=== PATIENT | female | born 1945 | race Caucasian/White ===

== ENCOUNTER 2023-07-17 15:16 | Observation (INO) | payer OTHER, SELFPAY ==
[2023-07-17 15:18] VITALS: BP 110/68; PULSE 81; RESP 16; TEMP 36.8; O2SAT 95; BMI 27.5
[2023-07-17 16:30] LABS: PCR FLU A Negative PCR FLU A (Negative); PCR FLU B Negative PCR FLU B (Negative); PCR RSV Negative PCR RSV (Negative); SARS PCR* POSITIVE SARS-CoV-2 (Negative)
--- NOTE | 2023-07-17 16:42 | PC.SOCIAL ---
Discharge planning: Spoke with family friend Afshan Grant, , who requested to speak with group social worker. Afshan states she is hoping pt is admitted to the hospital and that the hospital can place her in a facility due to her dementia. Afshan states she has been helping the try to work with the [facility] [employer] social studies tutor to find a place fro her to go but the [facility] has not been helpful. Informed friend that social work will be involved with discharge planning if pt is in need of this at discharge. At this time, pt has been triaged and is waiting in the waiting room. Afshan is not currently listed as a account contact associate for pt and suggested that pt can ad her if she wants Afshan to be involved in discharge planning.second time worker to follow up tomorrow as needed.
--- NOTE | 2023-07-17 17:00 | ED.WEAKNESS ---
HPI - Weakness General Time Seen by Provider: 17:00 Date Seen: 07/17/23 Chief complaint: Weakness Stated complaint: increased weakness Time Seen by Provider: 07/17/23 16:58 Source: patient, EMS and RN notes reviewed Mode of arrival: EMS Limitations: no limitations History of Present Illness HPI Narrative: This 77-year-old female has underlying dementia and is brought in by EMS from her home where she resides with her whom is her primary picker. He notes that she has been getting weaker, more difficult to care for. She started coughing about 3-4 days ago. She has had reported COVID vaccines. She felt hot last night but he did not check a temperature. She has had diminished oral intake, not eating or drinking while. She has had no vomiting, has not had any evidence of any pain anywhere. She has had diarrhea with the onset of the cough. She did have the triple viral swab on arrival, is COVID positive and I did update them on this. Her notes that she had wished not to be resuscitated, she is DNR DNI. He denies any chronic underlying heart or lung issues with her. They reportedly had stopped patient's donepezil last week. EMS reported to nursing staff that she had rales throughout her lungs. EMS did get a glucose of 160, placed an 18 gauge in her left forearm, did not give her any medicines. She reportedly is usually nonverbal beyond yes or no. She does talk to me, she tells me she loves me, is speaking to me in other words in short phrases, is not very verbose but still does have appropriate short communications with me. MD Complaint: generalized weakness Related Data Home Medications Medication Instructions Recorded Confirmed cholecalciferol (vitamin D3) 50 50 mcg PO DAILY 07/17/23 07/17/23 mcg (2,000 unit) capsule citalopram 20 mg tablet 20 mg PO DAILY 07/17/23 07/17/23 gabapentin 300 mg capsule 900 mg PO BID 07/17/23 07/17/23 multivitamin with min tab PO 07/17/23 no.36-iron,carbonyl-FA 16 mg iron-0.38 mg tablet (Geritol Complete) Allergies Allergy/AdvReac Type Severity Reaction Status Date / Time No Known Drug Allergies Allergy Verified 07/17/23 15:24 Review of Systems Status of ROS: Reports: unobtainable due to medical condition PFSH PFSH Medical History (Updated 07/17/23 @ 21:01 by Yaron Peterson MD) Discharge planning issues ?Z02.9 - Encounter for administrative examinations, unspecified (ICD-10) Urinary incontinence ?R32 - Unspecified urinary incontinence (ICD-10) Depression ?F32.A - Depression, unspecified (ICD-10) Peripheral sensory neuropathy ?G60.8 - Other hereditary and idiopathic neuropathies (ICD-10) Parkinsonism ?G20.C - Parkinsonism, unspecified (ICD-10) Dementia ?F03.90 - Unspecified dementia, unspecified severity, without behavioral disturbance, psychotic disturbance, mood disturbance, and anxiety (ICD-10) Surgical History (Updated 07/17/23 @ 20:55 by Yaron Peterson MD) History of tonsillectomy and adenoidectomy ?Z90.89 - Acquired absence of other organs (ICD-10) History of colonoscopy ?Z98.890 - Other specified postprocedural states (ICD-10) History of arthroscopic knee surgery ?Z98.890 - Other specified postprocedural states (ICD-10) Family History (Updated 07/17/23 @ 20:55 by Yaron Peterson MD) Other Breast cancer Cardiovascular disease High blood pressure Prostate cancer Social History (Updated 07/17/23 @ 20:57 by Yaron Peterson MD) Narrative: Patient lives with her to his primary caregiver. and family are concerned about the burden of caring for her in the home. Code status is DNR. She quit smoking in 1989. She does not drink alcohol What is your current living situation?: unable to answer Problems where you live: unable to answer Problems where you live details: NA In the past 12 months, utilities in danger of being shut off: unable to answer In past 12 months, lack of transportation kept you from medical appts, meetings, work, or getting things needed for daily living: unable to answer In the past 12 mos, have been you worried that your food would run out before you had money to buy more?: unable to answer In the past 12 mos, the food you bought just didn't last and you didn't have money to buy more?: unable to answer Highest level of school completed/degree received: don't know Smoking Status: Unknown if ever smoked Non-prescribed substance use: other Non-prescribed substance use details: unable to answer Caffeine: No How often does anyone, including family, friends and others, physically hurt you: unable to answer How often does anyone, including family, friends and others, insult or talk down to you: unable to answer How often does anyone, including family, friends and others, threaten you with harm: unable to answer How often does anyone, including family, friends and others, scream or curse at you: unable to answer service: No Exam Const: Vital Signs, click to edit/add: Vital Signs - 24 hr 07/17/23 15:18 07/17/23 17:14 Temperature 98.3 F Pulse Rate [Pulse Oximeter] 81 Respiratory Rate 16 Blood Pressure [Ri ght Upper Arm] 110/68 Pulse Oximetry 95 95 Oxygen Delivery Me thod Room Air Patient is alert, interactive, has intermittent cough that does not sound severe during the interaction. Her speech is normal when she does talk. Pupils are equal round, conjugate gaze, sclera clear. Lips are normal but oropharynx looks like mucosa is mildly dry. Neck supple, no masses. CV regular rate and rhythm, no murmur, normal S1-S2, no S3-S4. I am able to listen to her lungs, get patient to roll to her sides, there is some fine crackles at bases, otherwise no wheezing, no tachypnea noted. Abdomen is soft, nondistended, does not seem to have any tenderness, do not feel any masses. No significant lower extremity edema. Is moving arms and legs while I watch her. She does pick at the bandaging over her right forearm in an attempt to remove it frequently. Despite redirection from the family and myself, she continues to try to pick at it. Will likely need to place a glove on the right hand to stop her from removing her bandaging and IV in the left forearm. Documenting provider has reviewed patient's vital signs: yes Course Course ED Course: They are stating that they cannot take her home, that her condition is progressed even before the onset of COVID that she needs placement. I believe protective services social worker has already reviewed this with her. I will talk to the hospitalist. We will proceed with portable chest x-ray, obtain labs , monitor on oximetry to ensure no hypoxia. We do not have remdesivir, this is been reviewed with them. If her kidney function allow does and she has no other contraindications, can see if Paxlovid will be covered for her. Did recommend that we attempt to send this to a [facility] if this is the case. Consultations Consultation #1: Have reviewed with the hospitalist Dr. Peterson. We did discuss workup, he would prefer if hospitalizing that we do thorough workup. Thus, did add in troponin, EKG to other tests already ordered. She is reportedly DNR DNI per my conversation with the family. We did discuss Paxlovid and he would encourage use if she is able, need to wait on her kidney function. We have discussed the problems with her not being able to return to home baseline due to her underlying weakness in dementia that was progressive even before the COVID, can no longer care for her reportedly. Automobile Seat Cover Installer has already been down and talk to the family. Dr. Peterson does accept care, I will continue on her workup here in update him on anything he may need to know. Time: 17:15 Vital Signs Vital signs: Initial Vital Signs Temperature 98.3 F 07/17/23 15:18 Temperature Source Temporal Artery Scan 07/17/23 15:18 Pulse Rate 81 07/17/23 15:18 Respiratory Rate 16 07/17/23 15:18 Blood Pressure 110/68 07/17/23 15:18 Blood Pressure Mean 82 07/17/23 15:18 Blood Pressure Position Sitting 07/17/23 15:18 Pulse Oximetry 95 07/17/23 15:18 Oxygen Delivery Method Room Air 07/17/23 15:18 Vital Signs Temperature 98.3 F 07/17/23 15:18 Pulse Rate 81 07/17/23 15:18 Respiratory Rate 16 07/17/23 15:18 Blood Pressure 110/68 07/17/23 15:18 Pulse Oximetry 95 07/17/23 15:18 Oxygen Delivery Method Room Air 07/17/23 15:18 Temperature 98.5 F 07/17/23 18:50 Pulse Rate 71 07/17/23 18:50 Respiratory Rate 18 07/17/23 18:50 Blood Pressure 155/76 H 07/17/23 18:50 Pulse Oximetry 94 07/17/23 18:50 Oxygen Delivery Method Room Air 07/17/23 18:50 Medications Administered Medications: Generic Name Dose Route Start Last Admin Trade Name Freq PRN Reason Stop Dose Admin Gabapentin 900 mg 02/05/24 21:00 07/17/23 21:39 Gabapentin 300 Mg Capsule PO 900 mg BID MYRA Administration Sodium Chloride 5 ml 07/17/23 21:00 07/17/23 21:40 Sodium Chloride 0.9 % (Flush) 10 Ml Syringe IVF 5 ml BID MYRA Administration MDM - Weakness Lab Data Attestation: I reviewed the patient's lab results. Labs: Lab Results 07/17/23 07/17/23 07/17/23 Range/Units 15:30 17:19 18:20 WBC 7.69 (4.50-11.00) K/uL RBC 4.65 (4.00-5.20) m/uL Hgb 13.9 (12.0-16.0) gm/dL Hct 43.6 (33.0-51.0) % MCV 94 (80-100) fL MCH 30 (26-34) pg MCHC 32 (32-36) gm/dL RDW Coeff of Vaughn 12.9 (11.5-15.5) % Plt Count 191 (140-440) K/uL Neut % (Auto) 81.8 H (42.0-72.0) % Lymph % (Auto) 9.9 L (20-44) % Carson % (Auto) 7.9 (0.0-11.0) % Eos % (Auto) 0.0 (0.0-7.0) % Baso % (Auto) 0.3 (0.0-3.0) % Neut # (Auto) 6.30 (1.7-7.0) K/uL Lymph # (Auto) 0.80 L (0.90-2.90) K/uL Carson # (Auto) 0.60 (0.00-0.90) K/UL Eos # (Auto) 0.00 (0.00-0.50) K/uL Baso # (Auto) 0.02 (0.00-0.30) K/uL Abs Immat Gran (auto) 0.01 (0.00-0.30) K/uL Imm/Tot Granulo (auto) 0.1 % Sodium 136 (135-149) mmol/L Potassium 3.9 (3.6-5.1) mmol/L Chloride 101 (96-114) mmol/L Carbon Dioxide 26 (20-32) mmol/L Anion Gap 9 (7-15) mEq/L BUN 15 (7-30) mg/dL Creatinine 0.7 (0.5-1.5) mg/dL Estimated Creat Clear 41.33 Estimated GFR 90 ml/min Glucose 114 (60-115) mg/dL Lactate 1.4 (0.5-1.9) mmol/L Calcium 8.1 L (8.4-10.6) mg/dL Total Bilirubin 0.4 (0.1-1.5) mg/dL AST 27 (12-35) U/L ALT 16 (4-35) U/L Alkaline Phosphatase 103 (40-150) U/L Troponin I < 0.01 L (0.01-0.04) ng/mL C-Reactive Protein 4.6 H (0.5-1.0) mg/dL Total Protein 6.7 (6.0-8.3) g/dL Albumin 3.8 (3.3-5.0) g/dL SARS-CoV-2 (PCR) POSITIVE SARS-CoV-2 A (Negative) Influenza Type A (PCR) Negative PCR FLU A (Negative) Influenza Type B (PCR) Negative PCR FLU B (Negative) RSV (PCR) Negative PCR RSV (Negative) Lab Acknowledgement Test Added Imaging Data Chest x-ray: Attestation: I have reviewed the pertinent imaging results. My impression: I do not see any any acute infiltrate on my preliminary review, no covered pattern or CHF either. Radiologist's impression: Patient: DAVID BARILLAS Facility:?[facility] Patient ID:?[id number] Site Patient ID:?[id number]. Site :?[id number] Study:?XRay Chest 1V PORTABLE-07/17/2023 5:58:37 PM Ordering Physician:?Marcelino Green Final Report: INDICATION: COUGH, COVID TECHNIQUE: Chest 1 views. COMPARISON: None. FINDINGS: Cardiovasculature and mediastinum: Heart size and vasculature are within normal limits. Lungs and pleural spaces: No sign of infiltrate or mass. No sign of pleural effusion. No pneumothorax. Bones and soft tissues: No displaced fractures. Degenerative changes of the bilateral shoulders. IMPRESSION: No acute cardiopulmonary process. Dictated by Salas Nieves MD @ 07/17/2023 6:36:59 PM (Electronic Signature) ECG Data Attestation: I personally reviewed and interpreted this ECG as follows: ( Sinus rhythm, 60 beats per minute. No evidence of any ischemia or arrhythmia. QT corrected 442 milliseconds.) ECG interpretation date: 07/17/23 ECG interpretation time: 18:18 Prior ECG tracings: not available for review Discharge Plan Discharge Clinical Impression: COVID-19, Weakness Dementia Qualifiers: Dementia type: unspecified type Patient Disposition: Admitted As Observation
[2023-07-17 17:14] VITALS: O2SAT 95
--- NOTE | 2023-07-17 17:14 | CRLHL7_ITS ---
For Patients: As a result of the Cures Act, medical imaging exams and procedure reports are released immediately into your electronic medical record. You may view this report before your referring provider. If you have questions, please contact your health care provider. INDICATION: COUGH, COVID TECHNIQUE: Chest 1 views. COMPARISON: None. FINDINGS: Cardiovasculature and mediastinum: Heart size and vasculature are within normal limits. Lungs and pleural spaces: No sign of infiltrate or mass. No sign of pleural effusion. No pneumothorax. Bones and soft tissues: No displaced fractures. Degenerative changes of the bilateral shoulders. IMPRESSION: No acute cardiopulmonary process. Dictated by Salas Nieves MD @ 07/17/2023 6:36:59 PM (Electronically Signed)
--- OUTSIDE RECORDS SUMMARY | 2023-07-17 17:30 | XMS_ITS | Clinical Summary ---
Author Name Unknown Organization [place] Address [facility] [facility] [place] [address] Care Team Providers Care Furnace Repairer Name Role Phone Nery Sharma MD Primary Care Provider Unavailabl e Active Problems Patient Care Coordination No te Formatting of this note migh t be different from the original. 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
--- OUTSIDE RECORDS SUMMARY | 2023-07-17 17:30 | XMS_ITS | Clinical Summary ---
Author Name Unknown Organization [facility] Address [place], [place] [address] Care Team Providers Care Administrative Executive Name Role Phone JessicaNeva Primary Care Provider Allergies No known active allergies Medications Medication Sig Dispensed Refills Start Date End Date Status geriatric axblhvkjavui-tuta-v inerals (GERITOL; CENTRUM SILVER) tablet Take 1 tablet by mouth once daily. 0 3 Active multivitamin (MVI) tablet Take 1 Tablet by mouth once daily. 0 1 Active citalopram (CELEXA) 20 mg tabletIndications:A nxiety,Recurrent major depressive disorder, in partial remission (HC) Take 1 Tablet (20 mg) by mouth once daily. 90 Tablet 3 3 Active medication order composerIndications :Primary osteoarthritis of left knee Cane Diagnosis: left knee osteoarthritis 1 unit 0 3 Active cholecalciferol (VITAMIN D3) 2,000 unit capsule Take 2,000 units by mouth once daily. 0 Active polyethylene glycol (Miralax) 17 g per packet packetIndications:C onstipation, unspecified constipation type Mix 17 g (1 Packet) in liquid then take by mouth once daily if needed for Constipation. 30 Packet 11 3 Active gabapentin (NEURONTIN) 300 mg capsuleIndications: Peripheral sensory neuropathy TAKE 3 CAPSULES(900 MG) BY MOUTH TWICE DAILY 540 Capsule 2 3 Active Diaper,Brief, Adult,DisposableInd ications:Overflow incontinence,Modera te vascular dementia without behavioral disturbance, psychotic disturbance, mood disturbance, or anxiety (HC) Use 4-5 per day as directed. For home use. 120 Each 3 Active triamcinolone (ARISTOCORT; KENALOG) 0.1 % creamIndications:Sk in rash,Lichen simplex chronicus Apply topically to affected area(s) two times daily. 80 g 1 3 Active mirabegron EXTENDED-release (MYRBETRIQ) 25 mg tabletIndications:U rinary incontinence, unspecified type Take 1 Tablet (25 mg) by mouth once daily. 90 Tablet 0 4 Active mirabegron EXTENDED-release (MYRBETRIQ) 25 mg tabletIndications:U rinary incontinence, unspecified type Take 1 Tablet (25 mg) by mouth once daily. 90 Tablet 0 3 07/11/19 24 Discontinu ed(Reorder (E-cancel not sent)) Active Problems Problem Noted Date Diagnosed Date Recurrent major depressive disorder, in partial remission 07/30/2022 Overflow incontinence 07/30/2022 Parkinsonism, unspecified Parkinsonism type 07/13 Moderate vascular dementia w ithout behavioral disturbance, psychotic disturbance, mood disturbance, or anxiety 07/29/2022 Tremor 01/25/2022 Obesity, morbid 07/28/2021 Primary osteoarthritis of left knee 05/01/2018 Overview: October 2018: Dr. Marina did left knee cortisone injection. Left rotator cuff tear arthropathy 05/01/2018 Overview: Shoulder cortisone injection October 2018 and Jan 2020. 09/11/20: Dr. Drake did left Shoulder subacromial bursa injection, at 2 weeks reported 80-90% better. Hyperopia of both eyes with astigmatism and pres byopia 04/28/2017 Nuclear senile cataract of both eyes 04/28/2017 Mild cognitive disorder 11/11/2016 Peripheral sensory neuropathy 10/12/2016 Chronic bilateral low back pain with bilateral s ciatica 08/11/2016 Routine adult health maintenance 12/31/2013 Overview: Colonoscopy 12/2013 normal , no follow up needed Anxiety 04/11/2013 Overview: Citalopram started approximately 2005. Per outside recort review: prozac 2002, lexapro 2004. December 2014: trial tapering off Citalopram (Celexa) to see if needed. Feb 2015: Patient needing to restart Citalopram (Celexa). ACP (advance care planning) 02/07/2013 Overview: Patient has identified Health Care Agent(s): Yes Add Health Care Agents: Yes Health Care Agent(s): Primary Health Care Agent: Miguel A Burger Relationship: Phone: (h) [phone] (c) [phone] Alternative Health Care Agent:Lul Burger Relationship: son Phone: (c) [phone] Alternative Health Care Agent: Deanna Noble Relationship: daughter Patient has Advance Care Plan Documents (Health Care Directive, POLST): Yes Advance Care Plan Documents: Health Care Directive completed 02/07/13 Patient has identified Specific Treatment Preferences: Yes Specific Treatment Preferences: Code Status: CPR/Attempt Resuscitation Goals of Treatment: Provide Life sustaining treatment. Intubate, cardiovert, and provide medically necessary care to sustain life if expected to survive. If it is reasonable certain that patient will not recover the ability to know who he is or has a terminal condition or in a persistent vegetative state. STOP OR WITHHOLD ALL TREATMENTS that are prolonging her life Last Assessment & Plan: Advance Care Planning: Basic Session Shannon Burger is a [facility] patient . Shannon intends to establish care with Dr Gerald Drake at the [facility] in the near future. Advance care planning discussions were completed with Shannon and her healthcare agent, her Miguel A Burger at [facility]. Understanding of Illness and Disease [place]: Shannon denies any significant medical conditions. She shares that she does take a mild antidepressant. Shannon shares that they have experienced some tough losses in their life which has caused her to have depression. Shannon also shares that she has some arthritis especially in her shoulders. Goals of Care: Shannon currently hopes to maintain independence and remain healthly. Quality of Life: The following present and future experiences are most important for Shannon to live well: Spending time with family. Shannon and Miguel A have been for 47 years. They had 3 children. Their first born son Adam was killed at age 2 when he was hit by a car. They have a daughter Deanna who lives in [place] and son Lul who lives in [place]. They have 4 grand children. Shannon is independent in activities of daily living and is still working. Shannon bre with serious challenges in her life: support from and children. Shannon identifies the following fears and worries about her medical care: none Treatment and Care Preferences: Past experiences in dealing with family and/or friends that have or been seriously ill include the tragic of their first born son Adam. Shannon also lost a brother in a hunting accident. Shannon also shares that her father at the age of 82 of heart problems and her mother lived for 10 years with alzheimer's disease. She peacefully in a residential. As a result of these experiences, Sahn[place] expresses these health care preferences: If Shannon reaches a point where she can no longer make decisions for herself and it is reasonable certain that she will not recover the ability to know who she is or has a terminal condition or in a persistent vegetative state. Shannon requests to STOP OR WITHHOLD ALL TREATMENTS that are prolonging her life. This includes but is not limited to tube feedings, IV (intravenous) fluids, respirator/ventilator (breathing machine), cardiopulmonary resuscitation (CPR), and antibiotics. If/when Shannon is at the end-stage of her illness or terminally ill, she has chosen to receive care wherever is is easier for her family. Summary Shannon's Treatment Preferences: CARDIO-PULMONARY RESUSCITATION (CPR): The facts, risks and benefits of CPR were discussed with Shannon. If she had a sudden event that caused her heart and breathing to stop, she: WOULD want CPR attempted Follow Up Plan: Shannon was encouraged to continue advance care planning discussions with her primary care provider. Advance Care Planning discussion guide and CPR fact sheet were given to Shannon and her health care agent for review. Shannon identified the following concerns during her advance care planning session: none Questions identified for her primary care provider: none Documents addressed during this advance care planning session: * Health Care Agents identified. Primary health care agent is her Miguel A Burger; secondary health care agents are her son Lul Burger and her daughter Deanna Noble. * Health Care Directive completed and scanned into medical record. Recommendations/Plan: Shannon was encouraged to review Advance Care Plan with her children as they have been designated as her alternative health care agents. It is also relevant to review HCD after any significant change in medical condition or every 5 years. Shannon would benefit from: Care Navigation Help Desk Care Navigation brochure(s) was given to Shannon and/or her healthcare agent. Advance Care Planning recommendations and Shannon's concerns and questions were cc? ed to her primary provider. Interviewer: Josselin Martino RN PHN Advance Care Planning Coffee Shop Aide [phone] 02/07/2013 9:25 PM 02/07/2013 Encounters Date Type Department Care Team Description 07/14/2023 Telephone [facility] [address] [place] [address] Neva Lopez, Medication Management 07/11/2023 Refill [facility] [address] [place], [place] [id number] Linda Green PA Refill Request (Myrbetriq 25 mg tablets) 05/31/2023 1:40 PM LEAD ATHLETE Office Visit [facility] [id number] [place] [address] [id number] Neva Lopez DO Medicare ANNUAL (subsequent) Visit (fasting); Cough (Dry cough x 1-2 weeks); Derm Problem (Red, itchy, dry spots on stomach x 1 month. Tried calamine lotion and Triamcinolone cream with minor relief. ) 05/31/2023 Travel 05/23/2023 1:50 PM LEAD ATHLETE Office Visit [facility] [address] [place] [phone] Fall (buttocks); Error-please disregard (opened in error) 05/23/2023 Travel 04/24/2023 2:00 PM LEAD ATHLETE Office Visit [facility] [address] [place], [place] [phone] Brendon Smyth MD Rash; Immunization/Injection (COVID-19 vaccine) 04/24/2023 Travel 04/19/2023 Nurse Triage [facility] [address] [place] [address] Neva Lopez DO Rash 04/19/2023 Telephone [facility] [address] [place] [address] Neva Lopez, Appointment 04/18/2023 12:40 PM LEAD ATHLETE Office Visit [facility] [address] [facility] [place], [place] [id number] Linda Green PA Follow Up (Urinary incontinence) 04/18/2023 Travel from Last 3 Months Immunizations Name Administration Dates Next Due COVID-19 Vaccine Spikevax (M oderna 50mcg/0.5mL) 12YO+ [id number] Formula PF 04/24/2023 COVID-19 vaccine (Moderna 10 0mcg/0.5mL) PF, MDV 09/24/2020,08/28/2020 COVID-19 vaccine (Moderna Jose Manuel keith 50mcg/0.25mL) PF, MDV 05/21/2021 Hepatitis B, Unspecified 08/30/1999,04/08/1999,0 03/08/1999 Influenza RIV4 (Age 18+ Years) PRESERV FREE 12/2019,03/08/2019 Influenza Virus, Unspecified 04/12/2018 Influenza, High-dose Inactivated 03/08/2018,08/2013,03/04/2013 Influenza, High-dose Quadriv alent Inactivated 02/16/2023,02/21/2022 Influenza, Inactivated IIV3 (Age 65+ Years) Preserv Free 03/08/2019,02/15/2017 Pneumococcal Poly,23-Valent (Pneumovax) 05/02/20 16 Pneumococcal conj 13-Valent (Prevnar 13) 015 RSV, Recombinant ADJ Reconst ituted (Arexvy 120MCG/0.5mL) 02/16/2023 Tdap 04/27/2018,06/11/2007 Zoster (Zostavax-ZVL, live) 12/26/2011 Family History Medical History Relation Name Comments Cancer-prostate Brother Melanoma Brother Other Brother Heart Disease Father Hypertension Father Other Father glaucoma ? Cancer Maternal Grandmother Cancer-breast Mother Hypertension Mother Other Mother ALzheimer's. /g laucoma ? Heart Disease Paternal Grandfather Diabetes Paternal Grandmother Relation Name Status Comments Brother Father Maternal Grandmother Mother Paternal Grandfather Paternal Grandmother Social History Tobacco Use Types Packs/Day Years Used Date Smoking Tobacco: Former Cigarettes Q uit: 04/11/1990 Smokeless Tobacco: Never Tobacco Cessation:Counseling Given: Not Answered Comments:20+ years ago she quit Alcohol Use Standard Drinks/Week Comments No 0 (1 standard drink = 0.6 oz pur e alcohol) PHQ-2 Answer Date Recorded PHQ-2 TOTAL SCORE 4 05/31/2023 Social Connections Answer Date Recorded Frequency of Communication with Friends and Fami ly 0 07/29/2022 Financial Resource Strain Answer Date R ecorded Difficulty of Paying Living Expenses 3 07/29/2022 Difficulty of Paying Living Expenses Not on file 07/29/2022 Food Insecurity Answer Date Recorded Worried About Running Out of Food in the Last Ye ar 1 07/29/2022 Transportation Needs Answer Date Record ed Lack of Transportation (Medical) 1 07/29/2022 Housing Stability Answer Date Recorded Unable to Pay for Housing in the Last Year 1 07/29/2022 Sex and Gender Information Value Date Recorded Sex Assigned at Not on file Gender Identity Not on file Sexual Orientation Not on file Obstetrics History Last Filed Vital Signs Vital Sign Reading Time Taken Comments Blood Pressure 110/62 05/31/2023 1:53 PM LEAD ATHLETE Pulse 61 05/31/2023 1:53 PM LEAD ATHLETE Temperature 35.8 ??C (96.4 ??F) 05/23/2023 1:34 PM CS T Respiratory Rate 18 05/23/2023 1:34 PM LEAD ATHLETE Oxygen Saturation 97% 05/31/2023 1:53 PM LEAD ATHLETE Inhaled Oxygen Concentration - - Weight 87.2 kg (192 lb 3.2 oz) 05/31/2023 1:53 P M LEAD ATHLETE Height 149.5 cm (4' 10.86) 05/31/2023 1:[address] Body Mass Index 39.01 05/31/2023 1:53 PM LEAD ATHLETE Plan of Treatment Upcoming Encounters Date Type Department Care Team (Late st Contact Info) Description 08/03/2023 11:40 AM LEAD ATHLETE Office Visit [facility] [address] [place] [address] Linda Green PA [address] [place] [address] Health Maintenance Due Date Last Done Comments Zoster (shingles) series for age 50+ (2 of 3) 02/20/2012 12/26/2011 BMI (ht and wt on same day) for age 18+ 05/31/2024 05/31/2023, 04/24/2023, 10/27/2022, Additional history exists Depression screening for age 12+ 05/31/2024 05/31/2023, 07/29/2022, 01/24/2022, Additional history exists Medicare Wellness for age 65+ 05/31/2024, 01/24/2022, 04/20/2018, Additional history exists Tetanus booster 04/27/2028 04/27/2018, 06/11/2007 Hepatitis C screening for ag e 18-79 Completed 10/16/2013 DEXA/DXA scan for age 65+ Completed 10/17/2013 Pneumococcal series for age 65+ Completed 6, 12/25/2014 Tdap Completed 04/27/2018, 06/11/2007 Influenza for age 65+ Completed 02/16/2023 , 02/21/2022, 03/18/2020, Additional history exists COVID-19 vaccine series Completed 04/24/20, 04/14/2022, 12/01/2021, Additional history exists Advance Directives Documents on File Type Date Recorded Patient Aerospace Mechanic Expl anation Healthcare Directive 02/13/2013 10:12 AM D Care Teams Administrative Executive Relationship Specialty [place] [address] [place] [address] PCP - General Family Practice 07/28/21
--- OUTSIDE RECORDS SUMMARY | 2023-07-17 17:30 | XMS_ITS | Referral Summary ---
Author Name Unknown Organization [place] Address [facility] [place] [address] Care Team Providers Care Ship Surveyor Name Role Phone Nery Sharma MD Primary Care Provider Unavailabl e Active Problems Patient Care Coordination No te Formatting of this note migh t be different from the original. [email or web address] Problem Noted Date Diagnosed Date Chronic bilateral low back pain with bilateral s ciatica 08/11/2016 Social History Tobacco Use Types Packs/Day Years Used Date Smoking Tobacco: Never Assessed Sex and Gender Information Value Date Recorded Sex Assigned at Not on file Gender Identity Not on file Sexual Orientation Not on file Plan of Treatment Not on file Care Teams Ship Surveyor Relationship Specialty Start Date End Date Nery Sharma MD PCP - General Family Practice 01/24/17
[2023-07-17 18:24] LABS: Lactate* 1.4 mmol/L (0.5-1.9)
[2023-07-17 18:36] LABS: Basophils Absolute Auto 0.02 K/uL (0.00-0.30); Basophils Percent Auto 0.3 % (0.0-3.0); Hematocrit 43.6 % (33.0-51.0); Hemoglobin* 13.9 gm/dL (12.0-16.0); Immature Granulocytes Abs Auto 0.01 K/uL (0.00-0.30); Immature Granulocytes Pct Auto 0.1 %; Lymphocytes Percent Auto 9.9 % (20-44); Mean Corpuscular HGB Conc 32 gm/dL (32-36); Mean Corpuscular Hemoglobin 30 pg (26-34); Mean Corpuscular Volume 94 fL (80-100); Monocytes Percent Auto 7.9 % (0.0-11.0); Neutrophils Percent Auto 81.8 % (42.0-72.0); Platelet Count* 191 K/uL (140-440); RDW Coefficient of Variation % 12.9 % (11.5-15.5); Red Blood Count 4.65 m/uL (4.00-5.20); White Blood Count* 7.69 K/uL (4.50-11.00)
[2023-07-17 18:37] LABS: Slide Review Reflex No
[2023-07-17 18:46] LABS: Est. Creatinine Clearance* 41.33; Estimated Glomerular Filt Rate 90 ml/min
[2023-07-17 18:47] LABS: Anion Gap 9 mEq/L (7-15)
[2023-07-17 18:50] VITALS: BP 155/76; PULSE 71; RESP 18; TEMP 36.9; O2SAT 94
[2023-07-17 18:59] LABS: Blood Urea Nitrogen* 15 mg/dL (7-30); Carbon Dioxide* 26 mmol/L (20-32); Chloride* 101 mmol/L (96-114); Potassium* 3.9 mmol/L (3.6-5.1); Sodium* 136 mmol/L (135-149)
[2023-07-17 19:00] LABS: Alanine Aminotransferase* 16 U/L (4-35); Albumin* 3.8 g/dL (3.3-5.0); Alkaline Phosphatase* 103 U/L (40-150); Aspartate Amino Transferase* 27 U/L (12-35); Bilirubin Total* 0.4 mg/dL (0.1-1.5); Calcium* 8.1 mg/dL (8.4-10.6); Creatinine* 0.7 mg/dL (0.5-1.5); Glucose* 114 mg/dL (60-115); Total Protein* 6.7 g/dL (6.0-8.3)
--- NOTE | 2023-07-17 20:06 | PC.NURSE ---
Nursing Care Hours: [id number] Pt arrived to unit alone. Blockmason checked on pt and took BP and pulse ox reading. Pt began whimpering with BP but was able to remain calm with creative writer verbal support and soft touch. Pt unable to respond appropriately to questions. When talked to, pt just looks at staff and smiles or will look away. Started humming to self. Moist cough noted, spO2 WNL. Bed alarm in place. Pt appears comfortable under blankets with TV on.
--- NOTE | 2023-07-17 20:41 | PM.IMHP1 ---
Hospitalist- H&P: HPI History of Present Illness Date Seen: 07/17/23 Chief complaint: increased weakness Narrative: Emergency department history of present illness: Shannon Burger is a 77 year old female with underlying dementia and is brought in by EMS from her home where she resides with her whom is her primary fundraising consultant. He notes that she has been getting weaker, more difficult to care for. She started coughing about 3-4 days ago. She has had reported COVID vaccines. She felt hot last night but he did not check a temperature. She has had diminished oral intake, not eating or drinking while. She has had no vomiting, has not had any evidence of any pain anywhere. She has had diarrhea with the onset of the cough. She did have the triple viral swab on arrival, is COVID positive and I did update them on this. Her notes that she had wished not to be resuscitated, she is DNR DNI. He denies any chronic underlying heart or lung issues with her. They reportedly had stopped patient's donepezil last week. EMS reported to nursing staff that she had rales throughout her lungs. EMS did get a glucose of 160, placed an 18 gauge in her left forearm, did not give her any medicines. She reportedly is usually nonverbal beyond yes or no. She does talk to me, she tells me she loves me, is speaking to me in other words in short phrases, is not very verbose but still does have appropriate short communications with me. In the emergency department patient was found have COVID. She was not hypoxic. I went to speak to the patient and her family had left. Patient is unable to give any history. The only question she could answer was her name. I attempted to speak to her , her primary caregiver but he did not answer his phone this evening. Review of Systems Narrative: Unable to obtain [facility] Medical History (Updated 07/17/23 @ 21:01 by Yaron Peterson MD) Discharge planning issues ?Z02.9 - Encounter for administrative examinations, unspecified (ICD-10) Urinary incontinence ?R32 - Unspecified urinary incontinence (ICD-10) Depression ?F32.A - Depression, unspecified (ICD-10) Peripheral sensory neuropathy ?G60.8 - Other hereditary and idiopathic neuropathies (ICD-10) Parkinsonism ?G20.C - Parkinsonism, unspecified (ICD-10) Dementia ?F03.90 - Unspecified dementia, unspecified severity, without behavioral disturbance, psychotic disturbance, mood disturbance, and anxiety (ICD-10) Surgical History (Updated 07/17/23 @ 20:55 by Yaron Peterson MD) History of tonsillectomy and adenoidectomy ?Z90.89 - Acquired absence of other organs (ICD-10) History of colonoscopy ?Z98.890 - Other specified postprocedural states (ICD-10) History of arthroscopic knee surgery ?Z98.890 - Other specified postprocedural states (ICD-10) Family History (Updated 07/17/23 @ 20:55 by Yaron Peterson MD) Other Breast cancer Cardiovascular disease High blood pressure Prostate cancer Social History (Updated 07/17/23 @ 20:57 by Yaron Peterson MD) Narrative: Patient lives with her to his primary caregiver. and family are concerned about the burden of caring for her in the home. Code status is DNR. She quit smoking in 1989. She does not drink alcohol Meds Home Medications and Allergies Home Medications Medication Instructions Recorded Confirmed Type cholecalciferol (vitamin D3) 50 50 mcg PO DAILY 07/17/23 07/17/23 History mcg (2,000 unit) capsule citalopram 20 mg tablet 20 mg PO DAILY 07/17/23 07/17/23 History gabapentin 300 mg capsule 900 mg PO BID 07/17/23 07/17/23 History multivitamin with min tab PO 07/17/23 History no.36-iron,carbonyl-FA 16 mg iron-0.38 mg tablet (Geritol Complete) Allergies Allergy/AdvReac Type Severity Reaction Status Date / Time No Known Drug Allergies Allergy Verified 07/17/23 15:24 Exam Narrative: Exam Narrative: She is lying in bed alert and appears comfortable. She knows her name but is otherwise not oriented to her circumstances. She occasionally gives answers to questions but is mostly nonverbal in our interactions. Head is without obvious trauma. Eyes are normal. Extraocular movements are full. Unable to test visual woods. No facial asymmetry. Oropharynx with dry mucous membranes. Neck is supple without mass or adenopathy. Respirations are clear to auscultation. Cardiovascular: S1, S2, regular rate and rhythm. No murmur gallop or rub. Abdomen: Bowel sounds active. Abdomen is soft without tenderness or mass. External genitalia normal. Extremities with intact pedal pulses intact strength and motion in all 4 extremities. She has a number of excoriated lesions over her abdomen and left lower leg. Patient is observed to scratch these areas. Const: Vital Signs, click to edit/add: Vital Signs - 24 hr 07/17/23 15:18 07/17/23 17:14 Temperature 98.3 F Pulse Rate [Pulse Oximeter] 81 Respiratory Rate 16 Blood Pressure [Ri ght Upper Arm] 110/68 Pulse Oximetry 95 95 Oxygen Delivery Me thod Room Air Documenting provider has reviewed patient's vital signs: yes Hospitalist - H&P: Result Labs Labs: Short CBC 07/17/23 Range/Units 18:20 WBC 7.69 (4.50-11.00) K/uL Hgb 13.9 (12.0-16.0) gm/dL Hct 43.6 (33.0-51.0) % Plt Count 191 (140-440) K/uL BMP 07/17/23 18:20 Sodium 136 Potassium 3.9 Chloride 101 Carbon Dioxide 26 BUN 15 Creatinine 0.7 Glucose 114 Calcium 8.1 L Liver Function 07/17/23 Range/Units 18:20 Total Bilirubin 0.4 (0.1-1.5) mg/dL AST 27 (12-35) U/L ALT 16 (4-35) U/L Alkaline Phosphatase 103 (40-150) U/L Albumin 3.8 (3.3-5.0) g/dL Imaging Chest x-ray: Radiologist's impression: INDICATION: COUGH, COVID TECHNIQUE: Chest 1 views. COMPARISON: None. FINDINGS: Cardiovasculature and mediastinum: Heart size and vasculature are within normal limits. Lungs and pleural spaces: No sign of infiltrate or mass. No sign of pleural effusion. No pneumothorax. Bones and soft tissues: No displaced fractures. Degenerative changes of the bilateral shoulders. IMPRESSION: No acute cardiopulmonary process. Assessment and Plan Assessment and plan (1) COVID: Problem comment: Patient does not have hypoxia. Based on history she is profoundly weak even compared to baseline and not eating. Will provide supportive cares. Status: Acute (2) Weakness: Status: Acute (3) Discharge planning issues: Problem comment: By secondhand report patient may need higher level of care due to advanced dementia. Status: Acute Plan Acute on chronic likely due to COVID. Total time spent today is 55 minutes, 50 minutes in coordination of care.
[2023-07-17 20:45] LABS: C Reactive Protein* 4.6 mg/dL (0.5-1.0)
[2023-07-17 20:48] LABS: Troponin I* < 0.01 ng/mL (0.01-0.04)
[2023-07-17] MEDS: GABAPENTIN 300 MG CAPSULE 900 MG PO (21:39)
[2023-07-17] MEDS: SODIUM CHLORIDE 0.9 % (FLUSH) 10 ML SYRINGE 5 ML IVF (21:40)
[2023-07-17 23:00] VITALS: BP 170/86; PULSE 71; RESP 18; TEMP 36.9; O2SAT 94
[2023-07-18] VITALS (9 sets, daily range): BP systolic 107–163; BP diastolic 63–93; PULSE 62–109; RESP 16–20; TEMP 37.1–38.3; O2SAT 89–95
--- NOTE | 2023-07-18 05:33 | PC.NURSE ---
End of shift report : Admitted to unit at 1845, dx Covid. Per documentation patient has been having increased weakness at home. Unable to participate in assessments due to advanced dementia. Patient able to answer yes/no questions but is unable to state her name, date and is unaware of where she is. Denies pain, behaviors do not indicate discomfort. Patient is resistive to cares, but easily redirectable with talking patient through tasks. Multiple scabs to abdomen, lower extremities and buttocks, appears to be from patient scratching. Moist sounding cough, unable to expectorate. Lung sounds diminished bilaterally with crackles in bases. Incontinent of bladder and bowel.
[2023-07-18 06:37] LABS: Basophils Absolute Auto 0.02 K/uL (0.00-0.30); Basophils Percent Auto 0.2 % (0.0-3.0); Eosinophils Absolute Auto 0.02 K/uL (0.00-0.50); Eosinophils Percent Auto 0.2 % (0.0-7.0); Hemoglobin* 12.9 gm/dL (12.0-16.0); Immature Granulocytes Abs Auto 0.02 K/uL (0.00-0.30); Immature Granulocytes Pct Auto 0.2 %; Lymphocytes Percent Auto 10.2 % (20-44); Mean Corpuscular HGB Conc 32 gm/dL (32-36); Mean Corpuscular Hemoglobin 29 pg (26-34); Mean Corpuscular Volume 91 fL (80-100); Neutrophils Percent Auto 79.2 % (42.0-72.0); Platelet Count* 193 K/uL (140-440); RDW Coefficient of Variation % 12.8 % (11.5-15.5); Red Blood Count 4.39 m/uL (4.00-5.20); White Blood Count* 8.63 K/uL (4.50-11.00)
[2023-07-18 06:38] LABS: Slide Review Reflex No
[2023-07-18 06:51] LABS: Chloride* 103 mmol/L (96-114); Potassium* 3.6 mmol/L (3.6-5.1); Sodium* 135 mmol/L (135-149)
[2023-07-18 06:53] LABS: Creatinine* 0.6 mg/dL (0.5-1.5); Est. Creatinine Clearance* 41.33; Estimated Glomerular Filt Rate 93 ml/min
[2023-07-18 06:55] LABS: Anion Gap 6 mEq/L (7-15); Blood Urea Nitrogen* 11 mg/dL (7-30); Calcium* 8.1 mg/dL (8.4-10.6); Carbon Dioxide* 26 mmol/L (20-32); Glucose* 101 mg/dL (60-115)
[2023-07-18 06:57] LABS: C Reactive Protein* 5.1 mg/dL (0.5-1.0)
[2023-07-18] MEDS: ACETAMINOPHEN 325 MG TABLET 650 MG PO (08:02)
[2023-07-18] MEDS: GABAPENTIN 300 MG CAPSULE 900 MG PO ×2 (09:40→21:36)
[2023-07-18] MEDS: CITALOPRAM HYDROBROMIDE 20 MG TABLET PO (09:40)
[2023-07-18] MEDS: MULTIVITAMIN/MINERALS 1 TABLET 1 TAB PO (09:40)
[2023-07-18] MEDS: SODIUM CHLORIDE 0.9 % (FLUSH) 10 ML SYRINGE 5 ML IVF (09:40)
--- NOTE | 2023-07-18 14:25 | PC.NURSE ---
End of shift. pt has been pleasant. she can answer question with yes and no. she is on covid precautions. Denies pain, does not appear to have any pain with cares or movement. Pt is resistive to cares, at times but does listen and follow nursing instructions. Multiple scabs to abdomen, lower extremities and buttocks, Moist non productive cough. Lung sounds diminished bilaterally with crackles in bases. Incontinent of bladder and bowel. she is a fall risk and alarms are on. she is 1 assist up to BR or the chair.
--- NOTE | 2023-07-18 15:30 | PC.SOCIAL ---
Addendum entered by REEMA Samayoa 07/18/23 16:46: Discharge planning: workers' compensation magistrate spoke to pt's again this afternoon who said that he would not be able to private pay for LTC for his . workers' compensation magistrate then spoke to Afshan Rah who is a family friend and is listed as a contact for the pt. Afshan said that the couple has filled out an MA application and have submitted it to [facility], but the pt has not been assessed by the [facility] yet. Social work will try to connect with [facility] on the status of the MA application. Social work to follow-up as needed. Original Note: Discharge planning: workers' compensation magistrate spoke to pt's about discharge planning. Pt's stated that they hope to get the pt into a long-term care facility after her stay in the hospital. Pt's stated that he was overwhelmed with the process and was not sure which facility to send his to. workers' compensation magistrate explained that social work could check back in with him tomorrow. Pt's stated that they have a family friend who has been helping them with the process of looking for a long-term care center. Social work to follow-up as needed.
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
--- NOTE | 2023-07-18 22:45 | PC.NURSE ---
Shift note ( [id number]): The pt has been pleasant and appeared very confused; Doesn't communicate for her needs. When the curriculum writer was talking to her, she smiles and said yes. 1-assist to transfer from chair to bed. Incontinent of urine. No fever noted. Takes pill with apple sauce. The pt appeared without any acute distress.
[2023-07-19] VITALS (7 sets, daily range): BP systolic 119–155; BP diastolic 68–85; PULSE 60–78; RESP 16–18; TEMP 37.1–37.4; O2SAT 92–94
--- NOTE | 2023-07-19 06:39 | PC.NURSE ---
End of shift nursing note, [id number]: Pt confused per baseline. Vitals stable, on RA, afebrile. Turn and repo, brief changed PRN for urinary incontinence, no BM this shift. Agreeable with cares and assessment. Was fairly interactive and talkative at start of shift, radio script writer asked pt if she had pain, pt stated no then began to whimper and cry before smiling and tapping radio script writer's arm stating just kidding. Pt slept well during shift, call light within reach and bed alarm on for promotion of patient safety.
[2023-07-19] MEDS: MULTIVITAMIN/MINERALS 1 TABLET 1 TAB PO (09:41)
[2023-07-19] MEDS: GABAPENTIN 300 MG CAPSULE 900 MG PO ×2 (09:41→20:30)
[2023-07-19] MEDS: CITALOPRAM HYDROBROMIDE 20 MG TABLET PO (09:41)
[2023-07-19] MEDS: SODIUM CHLORIDE 0.9 % (FLUSH) 10 ML SYRINGE 5 ML IVF (09:42)
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
--- NOTE | 2023-07-19 15:54 | PC.SOCIAL ---
Discharge planning: Attempted to call for discharge planning and left a message requesting call back. Called second contact Afshan Rivas [phone] who has been helping pt and husbanf with care and plans. Afshan states she helped fill out online application for Medical Assistance. After some discussion about this, it became clear that Afshan had filled out a request for long term acute care registered nurse care assessment from [facility] but not the Medical Assistance application. Afshan states pt and have been told by [facility] that they are over income for Medical Assistance, but were told by an assisted living facility to fill out an application anyway. Discussed with Afshan that pt will need to private pay until they spend down their savings to a level that qualifies for Medical Assistance. Emailed to Afshan ([email or web address]) information on Senior LInkage Line, Medical Assistance income and asset guidelines and [place] report card for Assisted living and Fdc facilities. Afshan states that if there was a halfway plan for placement in a dfacility in the next week or so, that pt can return home with assistance until she can move from home to a facility. Ay states was looking at a memory care unit in a facility in [facility] close to family or would like her placed near [place] where he lives. Afshan suggested social media marketing analyst locate a few options and let decide as it is difficult for him to make a decision when there are too many options. Pt's [employer] insurance does not require Medicare guidelines of a 3 day hospital stay for coverage, but does require prior authorization for a short tern rehab stay. Sent information to [facility], [facility] and [facility] for evaluation for admit. Awaiting call back with decision. [facility] [place] and left message requesting a call back regarding bed availability. dry yard worker to follow up as needed.
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
--- NOTE | 2023-07-20 06:40 | PC.NURSE ---
End of shift [id number]: Altert to self. Turn and repo while in bed. A1-2 to bed from chair. Inc of urine. Pt appeared to rest comfortably throughout shift.
[2023-07-20 07:00] VITALS: BP 141/79; PULSE 59; RESP 16; TEMP 37.2; O2SAT 93
[2023-07-20] MEDS: MULTIVITAMIN/MINERALS 1 TABLET 1 TAB PO (09:37)
[2023-07-20] MEDS: CITALOPRAM HYDROBROMIDE 20 MG TABLET PO (09:37)
[2023-07-20] MEDS: GABAPENTIN 300 MG CAPSULE 900 MG PO ×2 (09:38→22:48)
--- NOTE | 2023-07-20 10:51 | PC.SOCIAL ---
Addendum entered by REEMA Samayoa 07/20/23 16:27: Discharge planning: [facility] notified this worker that the pt's insurance company denied payment of placement due to not seeing that the pt has a skilled need. Pt would be private pay for services. case worker informed family friend Afshan Monreal and daughter, Deanna Gutierrez, who is now listed as a contact for the pt. Deanna's number is #[phone]. Afshan and Deanna want to appeal the insurance's decision. case worker informed Deanna that the pt does not currently have a medical need to be in the hospital and she may be discharged tomorrow. case worker wanted Deanna to be aware, so that she was not surprised tomorrow. Deanna was thankful for the information. case worker asked Deanna if she could stay with her mother at home after she discharged and she said maybe for a few days, but not more than that. Deanna was going to talk to her father and family friend Afshan more about the insurance decision and their financial status. The family is also talking to [facility] about services and pricing. Social work to follow-up as needed. Original Note: Discharge planning: case worker heard back from [facility]. They can accept the pt for short-term rehab with COVID precautions and are currently running the prior authorization with insurance. case worker left a message for pt's on his cell phone and home phone asking for a call back to discuss the [facility] update and to check if the family is able to transport the pt to [place] when ready. Social work to follow-up as needed.
[2023-07-20 15:00] VITALS: RESP 16; O2SAT 97
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
--- NOTE | 2023-07-20 20:13 | PC.NURSE ---
End of shift [id number] - Pt alert to self, cooperative to care, and largely nonverbal. Pt would occasionally answer yes/no questions appropriately and make statements of 3-5 words out of context. Pt incontinent of bowel and bladder. Up to chair with walker and standby assistance. Pt needed maximum coaching to follow verbal commands. PT assessed that pt does not need to use walker and would sufficiently ambulate with a 1 assist and handhold. Pt tolerating regular diet with moderate assistance for feeding. Tolerating RA, VSS, afebrile. Pt unable to confirm nor deny feeling pain, SOB, nausea. Pt appears to be resting comfortably at end of shift.
[2023-07-20 22:44] VITALS: BP 142/49; PULSE 64; RESP 16; O2SAT 93
[2023-07-20 23:23] VITALS: O2SAT 93
--- NOTE | 2023-07-21 05:02 | PC.NURSE ---
Pt pleasant and cooperative. needs constant cueing on what to do. Will occsionally say a few words but doesnt make sense. VSS. Fluids offered multiple times during the night. Does not attempt to drink fluids on own. T&R q2hs. Was inc x3 . No BM.
[2023-07-21 07:00] VITALS: RESP 16; O2SAT 93
[2023-07-21 08:00] VITALS: BP 129/70; PULSE 66; RESP 16; TEMP 37.2; O2SAT 99
[2023-07-21] MEDS: GABAPENTIN 300 MG CAPSULE 900 MG PO ×2 (10:10→23:09)
[2023-07-21] MEDS: MULTIVITAMIN/MINERALS 1 TABLET 1 TAB PO (10:10)
[2023-07-21] MEDS: CITALOPRAM HYDROBROMIDE 20 MG TABLET PO (10:10)
[2023-07-21 10:11] VITALS: TEMP 37.2
[2023-07-21] MEDS: ACETAMINOPHEN 325 MG TABLET 650 MG PO (10:11)
[2023-07-21] MEDS: SODIUM CHLORIDE 0.9 % (FLUSH) 10 ML SYRINGE 5 ML IVF (10:16)
[2023-07-21 15:00] VITALS: PULSE 56; RESP 16; RESP 18; O2SAT 98
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
--- NOTE | 2023-07-21 16:37 | PC.NURSE ---
shift note: pt up 1/walker. pt has exp wheezing after activity. LS clr. pt on RA. IV patent. Pt toilet q 2hrs
--- NOTE | 2023-07-21 16:50 | PC.SOCIAL ---
Discharge planning: hall worker attempted to call family friend, Afshan Lazo, to discuss the pt being discharged today, as the pt is medically cleared to discharge and does not need to be in the hospital. hall worker had to leave a message. hall worker then spoke to pt's daughter, Deanna Gutierrez #[phone], and she stated that Afshan told her that the pt may be able to get accepted at [facility] today. Deanna stated that she would have Afshan call this worker, since Afshan spoke to the staff at [facility] and she did not. hall worker waited for Afshan to call and Afshan did not call. hall worker tried calling Afshan, but had to leave a message. hall worker reached out to [facility] to discuss the pt possibly being accepted to their facility today. [facility] stated that they could not accept the pt today and that it would be next week and they would need a $10,000 down payment and proof of the pt's pending MA application for the pt to even be considered for their facility. Family friend, Afshan, finally called this worker back and stated that she did talk to [facility] and that she was aware that the pt would most likely not get accepted there today. hall worker explained that they needed to make a decision on whether the daughter was taking the pt back to her house and staying with her or they were going to private pay for the bed at [facility] and pay $5,000 down. Afshan stated that she was on her way to see/talk to the Miguel A, who is in the hospital in [place], to have him make a decision about what to do. Afshan said she would call this worker back within the hour. This was around 11am. By noon, this family welfare social work professor had not heard from Afshan. hall worker tried calling Afshan around 1pm, but had to leave a message. hall worker then tried calling the daughter, Deanna, but she did not answer and this worker could not leave a message because the mailbox was full. While this family welfare social work professor was meeting with another pt, Afshan called and left a message on this worker's voicemail asking for a call back. Worker tried calling Afshan back around 2:45pm, but she did not answer and this worker had to leave a message. hall worker had still not heard back from Afshan by almost 4:00pm, so this worker tried calling Afshan again and she answered this time. Afshan stated that the pt's daughter was leaving town and going home because she had an emergency with her and that Sadiq was not able to write out a check for the down payment to the shelter because he is in the hospital. Afshan stated that Deanna had told her that she didn't want her mother going to [facility] because they were rude to her(Deanna) yesterday(family welfare social work professor did find out from [facility] that they no longer had a bed available for the pt, but worker did not get a chance to tell Afshan this before she disclosed what Deanna had said about the facility). Afshan asked if this family welfare social work professor could call [facility] and advocate for them to overturn their decision about not approving the pt for payment of short-term rehab. This family welfare social work professor then told Afshan that this family welfare social work professor would check on that with this worker's load out supervisor and be in touch with her. hall worker then updated load out supervisor on the status of this pt and her family. Social work to follow-up as needed.
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
--- NOTE | 2023-07-21 19:28 | PC.NURSE ---
Nursing Care Hours: [id number] Pt this shift calm and cooperative with cares. Void brief changed x1. Encouraged to drink fluids while ghost writer in room. VSS. Moist cough noted, stable on RA. Ate about 25-35% of meal with staff assist. Scabs noted on L leg from picking.
[2023-07-21 22:58] VITALS: BP 150/52; PULSE 56; RESP 17; TEMP 36.8; O2SAT 93
[2023-07-21 23:00] VITALS: RESP 17; O2SAT 93
--- NOTE | 2023-07-22 07:13 | PC.NURSE ---
Patient pleasant and cooperative with cares. Ambulated with gait belt and holding hand. Incontinent of urine. Denied pain. ?
[2023-07-22 08:15] VITALS: PULSE 56; RESP 18; O2SAT 98
[2023-07-22] MEDS: GABAPENTIN 300 MG CAPSULE 900 MG PO ×2 (08:20→20:30)
[2023-07-22] MEDS: CITALOPRAM HYDROBROMIDE 20 MG TABLET PO (08:21)
[2023-07-22] MEDS: MULTIVITAMIN/MINERALS 1 TABLET 1 TAB PO (08:21)
[2023-07-22] MEDS: SENNOSIDES/DOCUSATE TABLET PO (08:22)
[2023-07-22] MEDS: guaiFENesin 100 MG/ML CUP PO ×2 (08:22→15:22)
[2023-07-22 08:58] VITALS: BP 136/66; PULSE 56; RESP 18; TEMP 36.6; O2SAT 98
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
[2023-07-22 15:00] VITALS: RESP 18; O2SAT 98
[2023-07-22] MEDS: SODIUM CHLORIDE 0.9 % (FLUSH) 10 ML SYRINGE 5 ML IVF (18:11)
--- NOTE | 2023-07-22 18:12 | PC.NURSE ---
Nursing Care Hours: [id number] Pt this shift was happy and pleasant, cooperative with cares. VSS, on RA. Moist cough with diminished LS. Guaifenesin given x2 and worked on Aerobika. Pt able to blow into it causing vibrations but not strongly and does not produce cough. Pt unable to expel any mucus when coughing. No BM reported since admission. BS active and abdomen soft but distended. Senna given this AM, effective at end of shift with medium loose stool. Encouraged to drink fluids when law writer in the room. Incontinent of void x5. Gown changed x2 d/t wetness. Xiomara area and bilat upper groin creases reddened. Barrier cream applied. Abrasions and red patchy areas to low back as well. Pt seen scratching area, so lotion applied. Scattered scabs to abdomen and upper thighs d/t pt scratching and picking. Oral cares done. Pt ate 25% of breakfast, took a nap at lunch and refused dinner by turning head away or hiding mouth. Pt did drink 100% a clear Ensure. Granddaughter visited today
[2023-07-22 20:36] VITALS: BP 148/76; PULSE 58; RESP 14; TEMP 37.1; O2SAT 94
[2023-07-22 23:00] VITALS: RESP 14; O2SAT 94
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
[2023-07-23] MEDS: CITALOPRAM HYDROBROMIDE 20 MG TABLET PO (08:25)
[2023-07-23] MEDS: MULTIVITAMIN/MINERALS 1 TABLET 1 TAB PO (08:25)
[2023-07-23] MEDS: GABAPENTIN 300 MG CAPSULE 900 MG PO ×2 (08:25→20:31)
[2023-07-23 08:34] VITALS: BP 133/77; PULSE 60; RESP 16; TEMP 37.2; O2SAT 91
[2023-07-23 09:00] VITALS: RESP 16; O2SAT 91
--- NOTE | 2023-07-23 17:15 | PC.NURSE ---
Pt alert to self. Pt answers yes/no questions and will say a few words at times. Pt assist of one with gait belt. Pt up to chair during shift ([id number]). Pt awaiting placement?.
[2023-07-23 23:00] VITALS: RESP 16
--- NOTE | 2023-07-24 06:34 | PC.NURSE ---
Addendum entered by Olga Browning 07/24/23 07:05: MD Andino, previous addendum was misspelled Addendum entered by Olga Browning 07/24/23 07:04: updated MD Vigil on pt itching skin, going address during rounds. Original Note: Pt alert and oriented to self only. Pt denies pain, chest pain, and N/V. Pt has scratches from itching stomach and back, lotion applied, gown and bedding changed?with some relief.?Pt was turned and repositioned throughout night. Pt slept intermittently throughout night.??
[2023-07-24 09:00] VITALS: BP 132/62; PULSE 60; RESP 16; TEMP 37.1; O2SAT 93
[2023-07-24] MEDS: CITALOPRAM HYDROBROMIDE 20 MG TABLET PO (09:17)
[2023-07-24] MEDS: GABAPENTIN 300 MG CAPSULE 900 MG PO ×2 (09:17→20:43)
[2023-07-24] MEDS: MULTIVITAMIN/MINERALS 1 TABLET 1 TAB PO (09:17)
[2023-07-24 09:54] VITALS: BMI 29.9
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
--- NOTE | 2023-07-24 11:34 | PC.SOCIAL ---
Discharge planning: Received call from [facility] Vulnerable Adult outside maintenance worker Zhang [phone] who had follow up questions on [facility] report filed by this hospital social worker on Monday. Answered questions and was informed by Zhang that this case would be given to the Adult PRotection Corn Grower for assignment. IF additional information is needed or if there is any additional information needs to be shared with [facility] before the case is assigned to a worker, the labor gang supervisor Maude can be reached at [phone].
--- NOTE | 2023-07-24 13:30 | PC.SOCIAL ---
Discharge planning: Called [facility] and spoke with Sanjay who stated they can evaluate pr for a Medical Assistance pending bed, if the family provides the followin. Completed [employer] Medical Assistance application with all proofs of income submitted to the [facility]. 2. Copy of the application and all the financial proofs provided to [facility]. 3. Be prepared to pay prior to admit, the $10,000 deposit that will be returned if pt received Medical Assistance coverage for her stay. If family completes all these steps, [place] is willing to evaluate her for admit with no guarantee of admission. Received call from family friend, Afshan, requesting patient information be sent to [facility] in [place] for evaluation for admit. Called Scarlett Britt [phone] in admissions to confirm email address and secure emailed the requested information to her at [email or web address]. plate take out worker to follow up as needed.
--- NOTE | 2023-07-24 15:06 | PC.SOCIAL ---
Discharge planning: Called back to family friend, Afshan, who confirmed she is available and will help with discharge planning for pt. Afshan states she wants pt to go to [facility] from the hospital and thinks this is going to happen soon. Afshan refused for group social worker to look for additional facility options as [facility] is their first choice. Afshan states they have applied for Medical Assistance last week through [facility] and expect this to pay for the memory care unit. Called [facility] Vulnerable Adult worker, Zhang, and let him know that the family friend, Afshan, has been in contact with this group social worker and states she will be involved with discharge planning again after having said she was not available to assist with discharge planning on Monday. sill worker to follow up as needed.
[2023-07-24 19:37] VITALS: BP 112/48; PULSE 60; RESP 16; TEMP 36.3; O2SAT 95
[2023-07-24] MEDS: MELATONIN 3 MG TABLET PO (20:45)
--- NOTE | 2023-07-24 22:59 | PC.NURSE ---
PAtient awake for most of the shift. Up between chair and the bed. Patient vitally stable and takes pills with applesauce. Ax1 and using hands. Nursing staff assisting with feeds. Patient incontinent of bowel and bladder. Turn and reposistioned every 2 hours and patient shifting weight as needed. Nursing to continue to monitor.
[2023-07-24 23:00] VITALS: BP 131/77; PULSE 58; RESP 16; TEMP 36.4; O2SAT 95
[2023-07-25] MEDS: CETIRIZINE HCL 10 MG TABLET PO ×2 (00:28→09:06)
--- NOTE | 2023-07-25 06:37 | PC.NURSE ---
Shift note: Pt has been in bed throughout the shift. Response with simple yes and not to questions and uses gestures. Takes pills crush in applesauce. Pt had intermittent dry cough. Reddened area at the groin. Cleaned and barrier cream applied.
[2023-07-25 08:17] VITALS: BP 140/98; PULSE 59; RESP 14; TEMP 37.1; O2SAT 97
--- NOTE | 2023-07-25 08:50 | PC.NURSE ---
End of Shift: Patient vitally stable, lungs course with moist cough, BS WNL, IV SL and intact. Patient does not answer to question when asked about pain. Attempted to help patient to chair for breakfast but patient had no interest getting out of bed.
[2023-07-25] MEDS: GABAPENTIN 300 MG CAPSULE 900 MG PO (09:04)
[2023-07-25] MEDS: CITALOPRAM HYDROBROMIDE 20 MG TABLET PO (09:04)
[2023-07-25] MEDS: MULTIVITAMIN/MINERALS 1 TABLET 1 TAB PO (09:05)
[2023-07-25] MEDS: SODIUM CHLORIDE 0.9 % (FLUSH) 10 ML SYRINGE 5 ML IVF (09:10)
--- NOTE | 2023-07-25 09:16 | PM.IMPN1 ---
Progress Note: A&P Assessment and plan (1) COVID: Problem details: Onset of illness 07/15/23 Positive PCR 07/17/23 As of 07/25/23, Day 10 of illness. Afebrile, no hypoxia. Did not receive covid specific medications during this hospitalization. Supportive cares Status: Acute (2) Dementia: Problem details: Chronic, advancing. Decreasing ability to verbally communicate, participate in self cares. as primary care provider no longer able to care for her at home. Status: Chronic (3) Discharge planning issues: Problem details: Her was recently in a car accident. Relayed that it has become increasingly difficult to care for at home and he would like us to seek placement for her due to her advanced dementia. 07/19: Patient does not require hospital cares for her COVID, medically stable for discharge from the standpoint. inpatient services director to assist with discharge planning/placement needs. As placement could be difficult to find and lengthy, will need to discuss with family options outside of current hospitalization. 07/20: I am told is hospitalized elsewhere with COVID and pulmonary emboli. Per social media intern note, patient has been accepted to [facility] with COVID precautions, awaiting prior authorization. Will need to address transportation. -care center declined admission 07/21: Per report, family is not answering phone, voicemail is full. At this time, plan would be to return patient to home with family support so that they can continue to find long-term placement. Patient is medically stable for discharge Status: Chronic (4) Urinary incontinence: Status: Chronic (5) Depression: Status: Acute (6) Peripheral sensory neuropathy: Status: Chronic (7) Parkinsonism: Problem details: Noted Status: Chronic (8) Weakness: Status: Acute Subjective Date Seen: 07/25/23 Interval history: Daily Progress Note - Hospital Medicine Day #: 9 Day #10 of illness. symptoms started 07/15/23, +PCR 07/17/23 CC: Covid, Dementia OVERNIGHT UPDATES FROM STAFF & MED, LAB, IMAGING UPDATES No new labs or imaging. Patient is comfortable. Objective: essentially nonverbal. tells me yes to do you want a drink and takes a drink from the sippy cup. otherwise does not answer questions. Vitals: see above HEENT: NCAT Lungs: unlabored Cardiac: S1S2. Disposition/Potential discharge - Needs SNF, memory care. Ready for discharge. I have placed calls and messages at both the home number and cell phone listed for Miguel A, spouse I have placed a call and message with Afshan Monreal, friend Today I spent 50minutes seeing the patient, reviewing Expanse and EPIC notes/diagnostics, discussing the care plan with our care time that includes social work, PT/OT, pharmacy, RT, mcc and documenting my impressions and plan in the medical record. Exam Const: Vital Signs, click to edit/add: Vital Signs - 24 hr 07/24/23 19:37 07/24/23 23:00 07/24/23 23:00 Temperature 97.4 F L 97.6 F Pulse Rate [Left P ulse Oximeter] 60 58 L Respiratory Rate 16 16 16 Blood Pressure [Le ft Arm] 131/77 Blood Pressure [Ri ght Arm] 112/48 L Pulse Oximetry 95 95 Oxygen Delivery Me thod Room Air Room Air 07/25/23 08:17 07/25/23 08:17 Temperature 98.7 F Pulse Rate [Left P ulse Oximeter] 59 L 59 L Respiratory Rate 14 14 Blood Pressure [Le ft Arm] 140/98 H Blood Pressure [Ri ght Arm] Pulse Oximetry 97 Oxygen Delivery Me thod Room Air
--- NOTE | 2023-07-25 12:13 | PM.DS1 ---
DS: Providers Provider Date Seen: 07/25/23 Date of admission: 07/17/23 18:28 Primary care physician: Not a Local Provider Admitting Clinician: Yaron Peterson MD Consults: 07/17/23 22:11 Consult to Occupational Therapy [CONS] Routine Comment: Reason(s) for OT Consult:: Difficulty Managing ADLs Any Restrictions?:: No Restrictions Consult to Physical Therapy [CONS] Routine Comment: Reason(s) for PT Consult:: Unstable Gait Any Restrictions?:: No Restrictions Attending Physician on discharge: [facility] Date of Discharge: 07/25/23 DS: Diagnosis Discharge Diagnosis (1) COVID: Status: Acute Problem details: Onset of illness 07/15/23 Positive PCR 07/17/23 As of 07/25/23, Day 10 of illness. Afebrile, no hypoxia. Did not receive covid specific medications during this hospitalization. Supportive cares (2) Weakness: Status: Acute (3) Dementia: Status: Chronic Problem details: Chronic, advancing. Decreasing ability to verbally communicate, participate in self cares. as primary care provider no longer able to care for her at home. (4) Parkinsonism: Status: Chronic Problem details: Noted (5) Peripheral sensory neuropathy: Status: Chronic (6) Depression: Status: Acute (7) Urinary incontinence: Status: Chronic DS: Summary Hospital Course Hospital Course: FINAL DIAGNOSIS/FOLLOW UP ISSUES: BRIEF HOSPITAL COURSE: Patient was admitted for 9 days. Most of this care if not all of this care was group home in nature. The patient had COVID 19. She was on approximately day 3 of her illness. She was weaker than her baseline chronic weakness secondary to end-stage dementia. However she did not require oxygen supplementation, COVID specific therapies. Her dementia is advanced enough that physical and occupational therapy were not appropriate. We had difficulty communicating with the family. Her spouse was also hospitalized. Extended family and adult children had other competing issues. Ultimately social work, myself, Dr. Kaur and father Miguel A all conferenced on 07/25/2023 and patient will be discharged on 07/25 with family as they await for memory care placement. Chronic medical conditions with notable findings outlined above. DISCHARGE MEDICATIONS: See Reconciled list - SIGNIFICANT CHANGES: No changes Specific instructions to the patient and follow-up are outlined below. REVIEW OF SYSTEMS No new chest pain or dyspnea Pain controlled No voiding difficulties Tolerating diet challenge PHYSICAL EXAM: CONSTITUTIONAL: resting comfortably. VITAL SIGNS: see record. HEENT: Normocephalic, atraumatic. PERRL, EOMI, conjunctivae pink, no scleral icterus. Ears and nose externally normal. Pharynx normal. NECK: No JVD. No carotid bruit, no thyromegaly, no adenopathy. CHEST: Clear to auscultation bilaterally. HEART: S1 and S2 normal. Edema minimal. ABDOMEN: Soft, nontender. Normal bowel sounds. MUSCULOSKELETAL: No gross joint deformity or swelling. NEURO: Cranial nerves intact. Grossly intact. No asymmetric findings. SKIN: No rashes, petechiae, concerning changes PSYCHIATRIC: Mood euthymic. DISPOSITION: Home with family Time spent on discharge 37 minutes. Time Spent with Patient Time attestation: Total time spent providing and/or coordinating discharge services: Exam Const: Vital Signs, click to edit/add: Vital Signs - 24 hr 07/24/23 19:37 07/24/23 23:00 07/24/23 23:00 Temperature 97.4 F L 97.6 F Pulse Rate [Left P ulse Oximeter] 60 58 L Respiratory Rate 16 16 16 Blood Pressure [Le ft Arm] 131/77 Blood Pressure [Ri ght Arm] 112/48 L Pulse Oximetry 95 95 Oxygen Delivery Me thod Room Air Room Air 07/25/23 08:17 07/25/23 08:17 Temperature 98.7 F Pulse Rate [Left P ulse Oximeter] 59 L 59 L Respiratory Rate 14 14 Blood Pressure [Le ft Arm] 140/98 H Blood Pressure [Ri ght Arm] Pulse Oximetry 97 Oxygen Delivery Me thod Room Air Discharge Plan Discharge Disposition: Home w/ Parent or Adult Date of Admission: 07/17/23 18:28 Attending Provider on Discharge: Jazmin Castle Primary Care Provider: Provider,Not a Local Anticipated Discharge Date/Time: 07/25/23 12:09 Discharge Medications: Continued citalopram 20 mg tablet 20 mg PO DAILY gabapentin 300 mg capsule 900 mg PO BID cholecalciferol (vitamin D3) 50 mcg (2,000 unit) capsule 50 mcg PO DAILY Geritol Complete 16 mg iron- 0.38 mg tablet 1 tab PO DAILY Myrbetriq 25 mg tablet extended release 24 hr 25 mg PO DAILY Discharge Orders: Discharge Order (Routine); Ordered 07/25/23 Ordered By: Jazmin Castle Patient Education: COVID-19 (Coronavirus Disease 2019) (DC) Additional Instructions: discharge to home until move to memory care is coordinated. Activity Level: Activity as Tolerated Discharge Diet: Regular Follow Up Appointments: Provider,Not a Local [Primary Care Provider] - Forms: Yesmywineth Info Instructions
--- NOTE | 2023-07-25 12:34 | PC.SOCIAL ---
Discharge planning: Received message from Scarlett at [facility] in [place] stating there are many more steps to the process for admission to the memory care unit and that they can work with the family from home to complete this process. Facility has been sent information for evaluation fro admit as requested by Afshan wilson, but has not yet made a decision on admit. Called Afshan wilson, and left message stating that pt is medically ready for discharge and requesting call back to discuss plan for memory care placement. received call from dtDeanna braga, who stated she is working with [facility] for admission of pt to that memory care unit. Dtr states she has been back at at her parents home since Monday. Dtr states she will pick pt up today for discharge and provide care needed at home until memory care placement is finalized.
--- NOTE | 2023-07-25 15:46 | PC.NURSE ---
VSS, RA. Denies pain. Dementia, answers questions and somewhat follows commands. Tolerating regular diet. Encouraged fluids. Wet brief x1. No BM. Up with Ax1, walker, gait belt. No IV. Will discharge home to daughter until they can find placement in memory care. Will continue to monitor, follow POC, and keep pt and family updated. Vianney Cabezas RN
--- NOTE | 2023-07-25 17:17 | PC.NURSE ---
Pt discharged to home in the care of her daughter. Discharge instructions reviewed with pt and daughter, pt unable to comprehend, daughter verbalized understanding and denied further questions at this time. Pt left unit at 1629 via wheelchair.
== END 2023-07-25 16:29 | disposition home or self-care (01) ==
LOC: ED 17:28 → MEDSURG 18:28
PROVIDERS: Admitting Provider Family Medicine; Emergency Provider Family Medicine; Visit Provider Family Medicine
DX: U07.1 COVID-19 (principal); R53.1 Weakness; F03.90 Unspecified dementia, unspecified severity, without behavioral disturbance, psychotic disturbance, mood disturbance, and anxiety; Z02.9 Encounter for administrative examinations, unspecified; G20.C Parkinsonism, unspecified; R32 Unspecified urinary incontinence; F32.A Depression, unspecified; R05.9 Cough, unspecified; G60.8 Other hereditary and idiopathic neuropathies; Z87.891 Personal history of nicotine dependence; Z98.890 Other specified postprocedural states; Z66 Do not resuscitate
CPT/HCPCS: 36415; 71045; 80048; 80053; 83605; 84484; 85025; 86140; 87631; 93005; 94664; 94761; 97110; 97116; 97161; 97165; 97530; 97535; 99284; 99285; A9153; A9270; G0378